=== PATIENT | female | born 1995 | race African-American/Black ===

== ENCOUNTER 2017-09-04 20:45 | Emergency (ER) | payer OTHER ==
[~2017-09-04] VITALS: Ht 170.2 cm; Wt 62.0 kg
[2017-09-04] MEDS ORDERED: SODIUM CHLORIDE 0.9% 1,000 ML IV ONE (21:40)
[2017-09-04] MEDS ORDERED: LORAZEPAM 2MG/ML CPJ IV ONE (21:45)
[2017-09-04 22:37] LABS: CLARITY URINE CLEAR (CLEAR); COLOR URINE YELLOW (YELLOW); KETONES URINE TRACE (NEGATIVE); LEUKOCYTE ESTERASE URINE 2+ (NEGATIVE); NITRITE URINE NEGATIVE (NEGATIVE); OCCULT BLOOD URINE NEGATIVE (NEGATIVE); PH URINE 6.5 (4.5-8.0); PROTEIN URINE 1+ (NEGATIVE); SPECIFIC GRAVITY URINE 1.027 (1.005-1.030)
[2017-09-04 22:50] LABS: *AMPHETAMINES SCREEN URINE NEGATIVE (NEGATIVE); *BARBITURATES SCREEN URINE NEGATIVE (NEGATIVE); *BENZODIAZEPINES SCREEN URINE NEGATIVE (NEGATIVE); *COCAINE SCREEN URINE NEGATIVE (NEGATIVE); CANNABINOID URINE SCREEN NEGATIVE (NEGATIVE); METHADONE URINE SCREEN NEGATIVE (NEGATIVE); OPIATES URINE SCREEN NEGATIVE (NEGATIVE); PHENCYCLIDINE URINE SCREEN NEGATIVE (NEGATIVE)
[2017-09-04 22:51] LABS: EOSINOPHILS % 0.5 % (0.0-5.0); HEMATOCRIT. 34.1 % (36.0-48.0); HEMOGLOBIN. 11.2 g/dL (12.0-16.0); LYMPHOCYTES % 21.2 % (20.0-50.0); MEAN CORPUSCULAR HEMOGLOBIN 25.6 pg (28.0-32.0); MEAN CORPUSCULAR VOLUME 77.9 fL (81.0-99.0); MEAN PLATELET VOLUME 8.1 fl (7.4-10.4); MONOCYTES % 11.1 % (2.0-8.0); NEUTROPHILS % 66.2 % (40.0-76.0); PLATELET 335 x1000/uL (130-400); RED BLOOD CELL COUNT 4.38 mill/uL (4.2-5.4); RED CELL DISTRIBUTION WIDTH 14.8 % (11.6-14.6)
[2017-09-04 22:53] LABS: INR 1.1; PROTHROMBIN TIME 11.9 sec (9.4-11.6)
[2017-09-04 22:58] LABS: HCG SCREEN NEGATIVE
[2017-09-04] MEDS ORDERED: MIDAZOLAM HCL 2 MG/2 ML VIAL IV ONE (23:00)
[2017-09-04 23:07] LABS: CHLORIDE 111 mEq/L (98-107); CREATINE KINASE 125 IU/L (26-192); ETHANOL BLOOD 204 mg/dL
[2017-09-05] MEDS ORDERED: CEFTRIAXONE 1 G PREMIX 50 ML IV SCH
[2017-09-05] MEDS ORDERED: SODIUM CHLORIDE 0.9% 1000ML BAG (SEPSIS BOLUS) IV ONE ×2 (01:30)
[2017-09-05 07:36] VITALS: BP 101/52
== END 2017-09-05 08:08 | disposition home or self-care (01) ==
LOC: ER 21:08 → CANBEDREQ 09-05 05:11 → ER 09-05 08:08
DX: T51.8X1A Toxic effect of other alcohols, accidental (unintentional), initial encounter (principal); S16.1XXA Strain of muscle, fascia and tendon at neck level, initial encounter; S00.03XA Contusion of scalp, initial encounter; S00.33XA Contusion of nose, initial encounter; R45.1 Restlessness and agitation; N39.0 Urinary tract infection, site not specified; E87.2 Acidosis; R45.5 Hostility; X58.XXXA Exposure to other specified factors, initial encounter; Y93.89 Activity, other specified; Y99.8 Other external cause status; Y92.89 Other specified places as the place of occurrence of the external cause
CPT/HCPCS: 36415; 70450; 70486; 71045; 72125; 80053; 80305; 80307; 80329; 81001; 82550; 83605; 83690; 84703; 85025; 85610; 96361; 96365; 96366; 96375; 99291; G0482; J0696; J2060; J2250; J7030; Z7610